=== PATIENT | male | born 1950 | race Caucasian/White ===

== ENCOUNTER 2017-09-16 16:07 | Inpatient (IN) | payer OTHER ==
[~2017-09-16] VITALS: Ht 175.3 cm; Wt 82.4 kg
[~2017-09-16 16:07] MED LIST: ASCORBIC ACID500 M1 PO; ASPIRIN325 MG PO; BACTRIM,SEPT1 TABLET PO; CO Q-10100 MG PO; COZAAR50 MG PO; FISH OIL 1,001000 M1 PO; IBUPROFEN200 M1 PO; LIPITOR80 MG PO; MAGNESIUM 300300 MG PO; OXYCODONE HCL5 MG PO; PROTONIX40 MG PO; SINGULAIR10 MG PO; SUPER B-50 COM1 EACH PO; TOPROL XL6.25 MG PO; ULTRAM50 MG PO; VITAMIN D31000 UNI2 PO; ZOLOFT50 MG PO
[2017-09-16 16:55] LABS: BASOPHIL (%) 0.8 % (0-1); BASOPHIL COUNT 0.1 K/uL (0-0.1); EOSINOPHIL (%) 3.1 % (0-5); EOSINOPHIL COUNT 0.3 K/uL (0-0.3); HEMATOCRIT 43.7 % (38.0-50.0); HEMOGLOBIN 14.3 G/DL (12.5-16.6); IMMATURE GRANULOCYTE (%) 0.8 % (0.0-0.7); LYMPHOCYTE (%) 13.4 % (15-42); LYMPHOCYTE COUNT 1.3 K/uL (1.0-2.8); MCH 28.9 PG (29.0-34.0); MCHC 32.7 G/DL (30.0-36.0); MCV 88.5 FL (86-99); MONOCYTE (%) 8.8 % (3-12); MONOCYTE COUNT 0.8 K/uL (0-0.8); NEUTROPHIL (%) 73.1 % (45-76); PLATELET COUNT 156 K/uL (156-360); RBC DIS.WIDTH-CV 15.6 % (11.8-14.6); RBC DIS.WIDTH-SD 50.4 % (39-53); RED BLOOD COUNT 4.94 M/uL (4.00-5.50); WHITE BLOOD COUNT 9.6 K/uL (4.1-10.2)
[2017-09-16 17:05] LABS: CHLORIDE 109 mEq/L (99-109); SODIUM 142 mEq/L (136-147)
[2017-09-16 17:06] LABS: GLUCOSE 99 mg/dL (70-99)
[2017-09-16 17:10] LABS: CREATININE 1.3 mg/dL (0.6-1.3); GFR ESTIMATE (CALCULATED) 59 mL/min/ (58.99-99999)
[2017-09-16 17:11] LABS: UREA NITROGEN (BUN) 24 mg/dL (9-23)
[2017-09-16 17:17] LABS: TROP-I INTERPRETATION NEGATIVE; TROPONIN-I 0.04 ng/mL (0.0-0.30)
[2017-09-16] MEDS ORDERED: FLUNISOLIDE25 ML BOTH NARES (17:56)
[2017-09-16] MEDS ORDERED: PROVENTIL,2.5 MG/3 M IH (17:56)
[2017-09-16 22:27] LABS: BASE EXCESS -0.3 mEq/L (-3 to +3); BICARBONATE 22.6 mEq/L (22-26); METHEMOGLOBIN 0.8 % (0-1.5); PCO2 31 mm Hg (35-45); PO2 90 mm Hg (80-100); SITE LR; pH 7.47 (7.35-7.45)
[2017-09-16 22:28] LABS: COMMENTS - BLOOD GASES A+C+; DEVICE HFNC; O2 FLOW 7 L/MIN; TOTAL RESP RATE 26 resp/min
[2017-09-16 22:50] LABS: ALBUMIN 3.7 g/dL (3.2-4.8)
[2017-09-16 22:53] LABS: TOTAL PROTEIN 6.5 g/dL (6.4-8.3)
[2017-09-16 22:55] LABS: TOTAL BILIRUBIN 1.1 mg/dL (0.0-1.0)
[2017-09-16 22:56] LABS: ALKALINE PHOSPHATASE 122 IU/L (3-129)
[2017-09-16 22:58] LABS: AST (GOT) 89 IU/L (2-34); DIRECT BILIRUBIN 0.5 mg/dL (0.0-0.3)
[2017-09-16 22:59] LABS: ALT (GPT) 58 IU/L (3-49)
[2017-09-16 23:01] LABS: TROP-I INTERPRETATION NEGATIVE; TROPONIN-I 0.04 ng/mL (0.0-0.30)
[2017-09-16 23:40] VITALS: BP 171/104
[2017-09-17 04:08] VITALS: BP 116/70
[2017-09-17 05:29] LABS: HEMATOCRIT 41.9 % (38.0-50.0); HEMOGLOBIN 13.7 G/DL (12.5-16.6); MCH 28.9 PG (29.0-34.0); MCHC 32.7 G/DL (30.0-36.0); MCV 88.4 FL (86-99); PLATELET COUNT 165 K/uL (156-360); RBC DIS.WIDTH-CV 15.6 % (11.8-14.6); RBC DIS.WIDTH-SD 50.1 % (39-53); RED BLOOD COUNT 4.74 M/uL (4.00-5.50); WHITE BLOOD COUNT 11.1 K/uL (4.1-10.2)
[2017-09-17 05:48] LABS: TROP-I INTERPRETATION NEGATIVE; TROPONIN-I 0.05 ng/mL (0.0-0.30)
[2017-09-17 05:57] LABS: CHLORIDE 104 MEQ/L (99-109); CREATININE 1.4 MG/DL (0.6-1.3); GFR ESTIMATE (CALCULATED) 54 mL/min/ (58.99-99999); GLUCOSE 139 mg/dL (70-99); POTASSIUM 3.4 MEQ/L (3.7-5.4); SODIUM 143 MEQ/L (136-147); UREA NITROGEN (BUN) 21 mg/dL (9-23)
[2017-09-17 08:30] VITALS: BP 129/86
[2017-09-17 12:47] VITALS: BP 124/66
[2017-09-17 16:45] VITALS: BP 123/75
[2017-09-17 19:48] VITALS: BP 117/81
[2017-09-17 23:22] VITALS: BP 118/73
[2017-09-18 05:20] LABS: BASOPHIL (%) 0.1 % (0-1); EOSINOPHIL (%) 0 % (0-5); HEMATOCRIT 40.1 % (38.0-50.0); HEMOGLOBIN 13.3 G/DL (12.5-16.6); IMMATURE GRANULOCYTE (%) 0.8 % (0.0-0.7); LYMPHOCYTE (%) 3.3 % (15-42); LYMPHOCYTE COUNT 0.6 K/uL (1.0-2.8); MCH 29.1 PG (29.0-34.0); MCHC 33.2 G/DL (30.0-36.0); MCV 87.7 FL (86-99); MONOCYTE (%) 3.4 % (3-12); MONOCYTE COUNT 0.6 K/uL (0-0.8); NEUTROPHIL (%) 92.4 % (45-76); NEUTROPHIL COUNT 17.4 K/uL (1.8-6.4); PLATELET COUNT 168 K/uL (156-360); RBC DIS.WIDTH-CV 15.3 % (11.8-14.6); RBC DIS.WIDTH-SD 48.7 % (39-53); RED BLOOD COUNT 4.57 M/uL (4.00-5.50); WHITE BLOOD COUNT 18.9 K/uL (4.1-10.2)
[2017-09-18 05:28] VITALS: BP 107/66
[2017-09-18 05:58] LABS: ALBUMIN 3.4 G/DL (3.2-4.8); ALKALINE PHOSPHATASE 92 IU/L (3-129); ALT (GPT) 33 IU/L (3-49); AST (GOT) 30 IU/L (2-34); CHLORIDE 103 MEQ/L (99-109); CREATININE 1.2 MG/DL (0.6-1.3); DIRECT BILIRUBIN 0.2 mg/dL (0.0-0.3); GFR ESTIMATE (CALCULATED) > 59 mL/min/ (58.99-99999); POTASSIUM 3.7 MEQ/L (3.7-5.4); SODIUM 140 MEQ/L (136-147); TOTAL BILIRUBIN 0.6 MG/DL (0.0-1.0); TOTAL PROTEIN 5.4 G/DL (6.4-8.3)
[2017-09-18 05:59] LABS: GLUCOSE 224 mg/dL (70-99); UREA NITROGEN (BUN) 34 mg/dL (9-23)
[2017-09-18 07:11] VITALS: BP 115/67
[2017-09-18 11:03] VITALS: BP 132/78
[2017-09-18 14:41] VITALS: BP 118/65
[2017-09-18 20:08] VITALS: BP 123/83
[2017-09-18 23:25] VITALS: BP 125/78
[2017-09-19 05:22] VITALS: BP 119/74
[2017-09-19 08:47] VITALS: BP 126/85
[2017-09-19 09:08] LABS: HEMATOCRIT 43.6 % (38.0-50.0); HEMOGLOBIN 13.9 G/DL (12.5-16.6); MCH 28.4 PG (29.0-34.0); MCHC 31.9 G/DL (30.0-36.0); MCV 89.2 FL (86-99); PLATELET COUNT 188 K/uL (156-360); RBC DIS.WIDTH-CV 15.7 % (11.8-14.6); RED BLOOD COUNT 4.89 M/uL (4.00-5.50); WHITE BLOOD COUNT 22.3 K/uL (4.1-10.2)
[2017-09-19 09:34] LABS: CHLORIDE 101 MEQ/L (99-109); CREATININE 1.1 MG/DL (0.6-1.3); GFR ESTIMATE (CALCULATED) > 59 mL/min/ (58.99-99999); GLUCOSE 150 mg/dL (70-99); POTASSIUM 3.8 MEQ/L (3.7-5.4); SODIUM 141 MEQ/L (136-147); UREA NITROGEN (BUN) 36 mg/dL (9-23)
[2017-09-19 11:46] VITALS: BP 118/72
[2017-09-19 16:13] VITALS: BP 122/75
[2017-09-19 19:48] VITALS: BP 143/74
[2017-09-19 23:22] VITALS: BP 129/76
[2017-09-20 03:55] VITALS: BP 124/86
[2017-09-20 06:07] LABS: BASOPHIL (%) 0.1 % (0-1); EOSINOPHIL (%) 0.1 % (0-5); HEMOGLOBIN 13.2 G/DL (12.5-16.6); IMMATURE GRANULOCYTE (%) 1.4 % (0.0-0.7); LYMPHOCYTE (%) 2.9 % (15-42); LYMPHOCYTE COUNT 0.5 K/uL (1.0-2.8); MCH 28.7 PG (29.0-34.0); MCHC 32.2 G/DL (30.0-36.0); MCV 89.1 FL (86-99); MONOCYTE (%) 4.2 % (3-12); MONOCYTE COUNT 0.7 K/uL (0-0.8); NEUTROPHIL (%) 91.3 % (45-76); PLATELET COUNT 149 K/uL (156-360); RBC DIS.WIDTH-CV 15.6 % (11.8-14.6); RBC DIS.WIDTH-SD 51.2 % (39-53); WHITE BLOOD COUNT 17.5 K/uL (4.1-10.2)
[2017-09-20 06:33] LABS: CHLORIDE 102 MEQ/L (99-109); CREATININE 1.1 MG/DL (0.6-1.3); GFR ESTIMATE (CALCULATED) > 59 mL/min/ (58.99-99999); GLUCOSE 177 mg/dL (70-99); POTASSIUM 4.1 MEQ/L (3.7-5.4); SODIUM 139 MEQ/L (136-147); UREA NITROGEN (BUN) 33 mg/dL (9-23)
[2017-09-20 08:30] VITALS: BP 138/89
[2017-09-20 12:04] VITALS: BP 119/77
[2017-09-20 15:49] VITALS: BP 138/90
[2017-09-20 20:30] VITALS: BP 142/89
[2017-09-21 00:10] VITALS: BP 124/73
[2017-09-21 04:05] VITALS: BP 132/77
[2017-09-21 05:38] LABS: BASOPHIL (%) 0.1 % (0-1); EOSINOPHIL (%) 0.1 % (0-5); HEMATOCRIT 40.3 % (38.0-50.0); HEMOGLOBIN 13.2 G/DL (12.5-16.6); IMMATURE GRANULOCYTE (%) 1.3 % (0.0-0.7); LYMPHOCYTE (%) 5.5 % (15-42); LYMPHOCYTE COUNT 0.9 K/uL (1.0-2.8); MCH 29.1 PG (29.0-34.0); MCHC 32.8 G/DL (30.0-36.0); MCV 88.8 FL (86-99); MONOCYTE (%) 8.6 % (3-12); MONOCYTE COUNT 1.4 K/uL (0-0.8); NEUTROPHIL (%) 84.4 % (45-76); NEUTROPHIL COUNT 13.2 K/uL (1.8-6.4); PLATELET COUNT 137 K/uL (156-360); RBC DIS.WIDTH-CV 15.4 % (11.8-14.6); RBC DIS.WIDTH-SD 50.5 % (39-53); RED BLOOD COUNT 4.54 M/uL (4.00-5.50); WHITE BLOOD COUNT 15.7 K/uL (4.1-10.2)
[2017-09-21 05:57] LABS: CHLORIDE 101 MEQ/L (99-109); GFR ESTIMATE (CALCULATED) > 59 mL/min/ (58.99-99999); GLUCOSE 187 mg/dL (70-99); POTASSIUM 4.2 MEQ/L (3.7-5.4); SODIUM 139 MEQ/L (136-147); UREA NITROGEN (BUN) 34 mg/dL (9-23)
[2017-09-21 06:58] VITALS: BP 147/89
[2017-09-21 11:15] VITALS: BP 133/74
[2017-09-21] MEDS ORDERED: FUROSEMIDE20 MG PO (12:13)
[2017-09-21] MEDS ORDERED: LOSARTAN POTASS50 MG PO (12:13)
[2017-09-21] MEDS ORDERED: DULERA 100 MCG/13 GM IH (12:13)
[2017-09-21] MEDS ORDERED: SPIRIVA RESPIMAT4 GM IH (12:13)
[2017-09-21] MEDS ORDERED: PREDNISONE20 MG PO (12:13)
== END 2017-09-21 16:09 | disposition home health service (06) | DRG 196 ==
LOC: EME 16:07 → 4EAST 21:15 → EDOF 21:15 → ENRESERV 21:20 → EDOF 21:22 → ENRESERV 21:49 → 4EAST 22:59
PROVIDERS: Emergency Medicine; Hospitalist
DX: J84.112 Idiopathic pulmonary fibrosis (principal); J96.21 Acute and chronic respiratory failure with hypoxia; J43.9 Emphysema, unspecified; I27.29 Other secondary pulmonary hypertension; I25.10 Atherosclerotic heart disease of native coronary artery without angina pectoris; R59.0 Localized enlarged lymph nodes; I11.0 Hypertensive heart disease with heart failure; I27.81 Cor pulmonale (chronic); T50.2X5A Adverse effect of carbonic-anhydrase inhibitors, benzothiadiazides and other diuretics, initial encounter; E78.5 Hyperlipidemia, unspecified; E87.6 Hypokalemia; I49.3 Ventricular premature depolarization; Z99.81 Dependence on supplemental oxygen; Z95.5 Presence of coronary angioplasty implant and graft; Z87.891 Personal history of nicotine dependence; Z82.49 Family history of ischemic heart disease and other diseases of the circulatory system; Z74.01 Bed confinement status; Z80.3 Family history of malignant neoplasm of breast; K21.9 Gastro-esophageal reflux disease without esophagitis
CPT/HCPCS: 36600; 71045; 71275; 80048; 80076; 81003; 82803; 83880; 84484; 85025; 85027; 93005; 93306; 93970; 94640; 94640 76; 94760; 94799; 97530 GP; 99202; 99281; 99285; J0360; J1650; J1940; J2930; J7512

== ENCOUNTER 2017-10-10 14:11 | Emergency (ER) | payer OTHER ==
[~2017-10-10] VITALS: Ht 175.3 cm; Wt 84.5 kg
[~2017-10-10 14:11] MED LIST changes: +DULERA 100 MCG/13 GM IH; +FLUNISOLIDE25 ML BOTH NARES; +FUROSEMIDE20 MG PO; +LOSARTAN POTASS50 MG PO; +PREDNISONE20 MG PO; +PROVENTIL,2.5 MG/3 M IH; +SPIRIVA RESPIMAT4 GM IH
[2017-10-10 14:40] LABS: APPEARANCE SL.HAZY ((CLEAR)); BILIRUBIN NEGATIVE; BLOOD SMALL; COLOR YELLOW ((YELLOW)); GLUCOSE (STRIP) NEGATIVE; KETONES NEGATIVE; LEUKOCYTES TRACE; NITRITE NEGATIVE; PROTEIN (STRIP) 30; SPECIFIC GRAVITY 1.018 (1.000-1.030); UROBILINOGEN 0.2 MG/DL (0.2-1.0)
[2017-10-10 14:45] LABS: BACTERIA NONE SEEN /HPF; EPITHELIAL CELLS RARE /HPF; HYALINE CASTS 0-5 /LPF; MUCUS TRACE /LPF; RED BLOOD CELLS 0-5 /HPF (0-5); UCUL ADDED? NO; WHITE BLOOD CELLS 0-5 /HPF (0-5)
[2017-10-10 17:00] LABS: BASOPHIL (%) 0.1 % (0-1); EOSINOPHIL (%) 0.1 % (0-5); HEMATOCRIT 42.7 % (38.0-50.0); HEMOGLOBIN 14.3 G/DL (12.5-16.6); IMMATURE GRANULOCYTE (%) 0.9 % (0.0-0.7); LYMPHOCYTE (%) 3.8 % (15-42); LYMPHOCYTE COUNT 0.6 K/uL (1.0-2.8); MCH 29.1 PG (29.0-34.0); MCHC 33.5 G/DL (30.0-36.0); MCV 86.8 FL (86-99); MONOCYTE (%) 3.4 % (3-12); MONOCYTE COUNT 0.6 K/uL (0-0.8); NEUTROPHIL (%) 91.7 % (45-76); NEUTROPHIL COUNT 15.1 K/uL (1.8-6.4); PLATELET COUNT 167 K/uL (156-360); RBC DIS.WIDTH-CV 15.9 % (11.8-14.6); RBC DIS.WIDTH-SD 50.8 % (39-53); RED BLOOD COUNT 4.92 M/uL (4.00-5.50); WHITE BLOOD COUNT 16.5 K/uL (4.1-10.2)
[2017-10-10 17:10] LABS: CHLORIDE 103 mEq/L (99-109); POTASSIUM 5.3 mEq/L (3.7-5.4); SODIUM 140 mEq/L (136-147)
[2017-10-10 17:12] LABS: GLUCOSE 130 mg/dL (70-99)
[2017-10-10 17:16] LABS: CREATININE 1.3 mg/dL (0.6-1.3); GFR ESTIMATE (CALCULATED) 59 mL/min/ (58.99-99999); UREA NITROGEN (BUN) 37 mg/dL (9-23)
[2017-10-10 17:22] LABS: TROP-I INTERPRETATION NEGATIVE; TROPONIN-I 0.09 ng/mL (0.0-0.30)
[2017-10-10] MEDS ORDERED: DUONEB 2.5-0.5 M3 ML AEROSOL (17:45)
[2017-10-10] MEDS ORDERED: NEBULIZER MC (17:45)
[2017-10-10 20:32] VITALS: BP 135/95
== END 2017-10-10 21:14 | disposition home or self-care (01) ==
LOC: EME 14:11
PROVIDERS: Emergency Medicine
PROC: 0T9B70Z Drainage of Bladder with Drainage Device, Via Natural or Artificial Opening (ICD-10-PCS; principal; 2017-10-10)
DX: R33.9 Retention of urine, unspecified (principal); I11.0 Hypertensive heart disease with heart failure; I50.9 Heart failure, unspecified; J44.9 Chronic obstructive pulmonary disease, unspecified; I45.10 Unspecified right bundle-branch block; R94.31 Abnormal electrocardiogram [ECG] [EKG]; J84.9 Interstitial pulmonary disease, unspecified; E11.9 Type 2 diabetes mellitus without complications; K21.9 Gastro-esophageal reflux disease without esophagitis; Z79.82 Long term (current) use of aspirin; Z99.81 Dependence on supplemental oxygen; Z87.891 Personal history of nicotine dependence; Z95.9 Presence of cardiac and vascular implant and graft, unspecified
CPT/HCPCS: 71045; 80048; 81003; 83880; 84484; 85025; 93005; 99281; 99285; J1940